=== PATIENT | female | born 1985 | race Hispanic/Latino ===

== ENCOUNTER 2021-06-05 09:36 | Outpatient (CLI) | payer OTHER | END 2021-06-05 09:37 | disposition home or self-care (01) | LOC: CTENTCT 09:36 | PROVIDERS: ATTEND Student in an Organized Health Care Education/Training Program | DX: J32.9 Chronic sinusitis, unspecified (principal) | CPT/HCPCS: 70486 ==

== ENCOUNTER 2023-09-30 08:33 | Outpatient (CLI) | payer OTHER | END 2023-09-30 08:34 | disposition home or self-care (01) | LOC: BICMRI 08:33 | PROVIDERS: ATTEND Family Medicine | DX: M54.2 Cervicalgia (principal); M62.89 Other specified disorders of muscle | CPT/HCPCS: 72156 ==

== ENCOUNTER 2023-09-30 13:34 | Inpatient (IN) | payer OTHER ==
[2023-09-30 14:39] LABS: #Monocytes 0.5 thou/uL (0.11-0.59); #Neutrophils 6.5 thou/uL (1.40-6.50); %Basophils 0.3 % (0.0-1.0); %Eosinophils 0.5 % (0.0-10.0); %Lymphocytes 19.8 % (21.0-51.0); %Monocytes 5.3 % (0.0-10.0); %Neutrophils 73.8 % (42.0-75.0); Hematocrit 40.6 % (36.0-47.0); Hemoglobin 13.7 g/dL (12.0-16.0); Mean Corpuscular HGB CONC 33.7 g/dL (32.0-36.0); Mean Corpuscular Hemoglobin 29.4 pg (27.0-31.0); Mean Corpuscular Volume 87.1 fl (78.0-98.0); Mean Platelet Volume 10.9 fL (7.4-10.4); Platelet Count 245 10x3/uL (130-400); RBC Distribution Width 11.9 % (11.5-14.5); Red Blood Cell (RBC) Count 4.66 mill/uL (4.20-5.40); White Blood Cell (WBC) Count 8.8 10x3/uL (4.8-10.8)
[2023-09-30] MEDS ORDERED: Dexamethasone 10 MG/ML VIAL ONE (15:03)
[2023-09-30] MEDS ORDERED: metroNIDAZOLE 500 MG (100 mL) BAG ONE (15:03)
[2023-09-30] MEDS ORDERED: Vancomycin 1 GM/200 ML (FROZEN) BAG ONE (15:03)
[2023-09-30 15:10] LABS: ALT (SGPT) 17 U/L (8-55); AST (SGOT) 25 U/L (5-34); Albumin 4.8 g/dL (3.5-5.0); Alkaline Phosphatase 75 U/L (40-110); Anion Gap 13 mmol/L (10-20); BUN (Urea Nitrogen) 8 mg/dL (7.0-18.7); Bilirubin, Total 0.8 mg/dL (0.2-1.2); Calc. Creatinine Clearance 0 mL/min (70-130); Calcium 10.5 mg/dL (7.8-10.44); Carbon Dioxide 27 mmol/L (22-29); Chloride 103 mmol/L (98-107); Estimated GFR 114; Globulin 3.4 g/dL (2.4-3.5); Glucose 110 mg/dL (70-105); Protein, Total 8.2 g/dL (6.0-8.3); Sodium 139 mmol/L (136-145)
[2023-09-30] MEDS ORDERED: Ondansetron PF 4 MG/2 ML Vial IVP PRN (15:30)
[2023-09-30] MEDS ORDERED: Guaifenesin DM 100-10/5 ML UDCUP PO PRN (15:30)
[2023-09-30] MEDS ORDERED: Bisacodyl 5 MG TAB PO PRN (15:30)
[2023-09-30] MEDS ORDERED: Zolpidem Tartrate 5 MG TAB PO PRN (15:30)
[2023-09-30] MEDS ORDERED: HYDROcodone/Acetaminophen 5/325 mg Tablet PO PRN (15:30)
[2023-09-30] MEDS ORDERED: Senokot S 8.6-50 MG TAB PO PRN (15:30)
[2023-09-30 15:32] LABS: BHCG - Serum Negative (NEGATIVE); Pregs Control Background? CLEAR/WHITE (CLR/WHITE); Pregs Control Bar Appear? YES (CONTROL BAR)
[2023-09-30 16:59] LABS: HIV (1/2) Antibody/Antigen Non-Reactive (NonReactive); HIV 1/2 INDEX 0.15 S/CO (<1.00)
[2023-09-30] MEDS: Sodium Chloride 0.9% 1,000 ML IV SCH (17:33)
[2023-09-30 17:48] VITALS: BMI 22.2
[2023-09-30] MEDS: metroNIDAZOLE 500 MG in Premix 1 BAG IVPB SCH (21:00)
[2023-09-30] MEDS: Famotidine 20 MG TAB PO SCH (21:00)
[2023-10-01] MEDS: Vancomycin 1 GM in Premix 1 BAG IVPB SCH (03:11)
[2023-10-01 05:00] LABS: #Monocytes 0.2 thou/uL (0.11-0.59); #Neutrophils 4.8 thou/uL (1.40-6.50); %Basophils 0.2 % (0.0-1.0); %Lymphocytes 14.1 % (21.0-51.0); %Monocytes 2.9 % (0.0-10.0); %Neutrophils 82.6 % (42.0-75.0); Hematocrit 35.7 % (36.0-47.0); Hemoglobin 11.9 g/dL (12.0-16.0); Mean Corpuscular HGB CONC 33.3 g/dL (32.0-36.0); Mean Corpuscular Hemoglobin 29.2 pg (27.0-31.0); Mean Corpuscular Volume 87.5 fl (78.0-98.0); Mean Platelet Volume 11.5 fL (7.4-10.4); Platelet Count 227 10x3/uL (130-400); RBC Distribution Width 11.7 % (11.5-14.5); Red Blood Cell (RBC) Count 4.08 mill/uL (4.20-5.40); White Blood Cell (WBC) Count 5.8 10x3/uL (4.8-10.8)
[2023-10-01 05:21] LABS: Anion Gap 11 mmol/L (10-20); BUN (Urea Nitrogen) 9 mg/dL (7.0-18.7); Calc. Creatinine Clearance 106 mL/min (70-130); Calcium 9.2 mg/dL (7.8-10.44); Carbon Dioxide 23 mmol/L (22-29); Chloride 107 mmol/L (98-107); Estimated GFR 120; Glucose 178 mg/dL (70-105); Potassium 3.5 mmol/L (3.5-5.1); Sodium 137 mmol/L (136-145)
[2023-10-01] MEDS: Acetaminophen 325 MG TAB PO PRN (10:41)
[2023-10-01] MEDS: traMADol HCl 50 MG TAB PO PRN (12:24)
[2023-10-01] MEDS: Piperacillin/Tazobactam 3.375 GM in Sodium Chloride 0.9% 100 ML IVPB SCH ×2 (19:55→23:50)
[2023-10-02 04:09] LABS: #Eosinphils 0.1 thou/uL (0.0-0.7); #Monocytes 0.5 thou/uL (0.11-0.59); #Neutrophils 4.8 thou/uL (1.40-6.50); %Basophils 0.4 % (0.0-1.0); %Eosinophils 0.8 % (0.0-10.0); %Lymphocytes 23.8 % (21.0-51.0); %Monocytes 6.9 % (0.0-10.0); %Neutrophils 67.8 % (42.0-75.0); Hematocrit 32.6 % (36.0-47.0); Hemoglobin 10.9 g/dL (12.0-16.0); Mean Corpuscular HGB CONC 33.4 g/dL (32.0-36.0); Mean Corpuscular Hemoglobin 29.2 pg (27.0-31.0); Mean Corpuscular Volume 87.4 fl (78.0-98.0); Mean Platelet Volume 11.2 fL (7.4-10.4); Platelet Count 185 10x3/uL (130-400); RBC Distribution Width 11.9 % (11.5-14.5); Red Blood Cell (RBC) Count 3.73 mill/uL (4.20-5.40); White Blood Cell (WBC) Count 7.1 10x3/uL (4.8-10.8)
[2023-10-02 04:42] LABS: Vancomycin, Trough 8.4 ug/mL
[2023-10-02 04:43] LABS: Anion Gap 8 mmol/L (10-20); BUN (Urea Nitrogen) 15 mg/dL (7.0-18.7); Calc. Creatinine Clearance 87 mL/min (70-130); Calcium 8.6 mg/dL (7.8-10.44); Carbon Dioxide 23 mmol/L (22-29); Chloride 107 mmol/L (98-107); Estimated GFR 114; Glucose 94 mg/dL (70-105); Potassium 3.3 mmol/L (3.5-5.1); Sodium 135 mmol/L (136-145)
[2023-10-02] MEDS: Vancomycin HCl 750 MG in Sodium Chloride 0.9% 250 ML 250 ML IVPB SCH (04:57)
[2023-10-02] MEDS: Potassium Chloride 20 MEQ TAB PO SCH (08:52)
[2023-10-02 11:01] LABS: Bacteria/HPF None Seen HPF (None Seen); Bilirubin Negative (Negative); Blood, Urine Negative (Negative); CAUTI Indications for Culture Dysuria,urgency,freq; Clarity Clear (Clear); Glucose, Urine (Dipstick) Normal (Negative); Ketone, Urine Negative (Negative); Leukocyte Negative Leu/uL (Negative); Nitrite Negative (Negative); Protein, Urine (Dipstick) Negative (Neg-Trace); RBC/HPF 0-3 HPF (0-3); Specific Gravity, Urine 1.006 (1.002-1.036); Squamous Epithelial 0-3 HPF (0-3); Urobilinogen Normal mg/dL (Less than 2); WBC/HPF None Seen HPF (0-3); pH, Urine 5.5 (5.0-9.0)
[2023-10-02 11:13] LABS: Urine Culture Reflex No No
[2023-10-03] MEDS: Ibuprofen 100 MG/5 ML UDCUP PO PRN (05:15)
[2023-10-03 05:50] LABS: #Basophils 0.1 thou/uL (0.0-0.2); #Eosinphils 0.1 thou/uL (0.0-0.7); #Monocytes 0.6 thou/uL (0.11-0.59); #Neutrophils 5.2 thou/uL (1.40-6.50); %Basophils 0.7 % (0.0-1.0); %Eosinophils 1.4 % (0.0-10.0); %Monocytes 6.7 % (0.0-10.0); Hematocrit 37.5 % (36.0-47.0); Hemoglobin 12.4 g/dL (12.0-16.0); Mean Corpuscular HGB CONC 33.1 g/dL (32.0-36.0); Mean Corpuscular Hemoglobin 29.2 pg (27.0-31.0); Mean Corpuscular Volume 88.2 fl (78.0-98.0); Mean Platelet Volume 11.2 fL (7.4-10.4); Platelet Count 213 10x3/uL (130-400); Red Blood Cell (RBC) Count 4.25 mill/uL (4.20-5.40); White Blood Cell (WBC) Count 8.8 10x3/uL (4.8-10.8)
[2023-10-03 06:18] LABS: Anion Gap 17 mmol/L (10-20); BUN (Urea Nitrogen) 9 mg/dL (7.0-18.7); CRP (Inflammatory) Less than 0.50 mg/dL (= or < 0.5); Calc. Creatinine Clearance 89 mL/min (70-130); Calcium 9.8 mg/dL (7.8-10.44); Carbon Dioxide 22 mmol/L (22-29); Chloride 103 mmol/L (98-107); Estimated GFR 115; Glucose 96 mg/dL (70-105); Potassium 3.9 mmol/L (3.5-5.1); Sodium 138 mmol/L (136-145)
[2023-10-03] MEDS ORDERED: Cyclobenzaprine 10 MG TAB PO PRN (08:37)
[2023-10-03] MEDS: Cyclobenzaprine 10 MG TAB PO SCH (09:48)
[2023-10-03] MEDS: Fioricet 325/50/40 mg Tablet PO PRN (14:13)
[2023-10-04 12:18] LABS: ANA Symphony (Qualitative) Negative (Negative); ANA Symphony (Quantitative) 0.1 Ratio (< 0.7 Negative); dsDNA IgG Antibody 1.1 IU/mL (<10 Negative)
[2023-10-04] MEDS: CEFAZOLIN 2 GM in Sodium Chloride 0.9% 100 ML IVPB SCH (14:03)
[2023-10-05 04:50] LABS: Prothrombin Time 12.8 sec (12.0-14.7)
[2023-10-06 04:48] VITALS: BP 108/73; TEMP 98.4
[2023-10-06] MEDS ORDERED: Lidocaine 1% PF 5 ML VIAL ONE (07:00)
[2023-10-06] MEDS ORDERED: Sodium Bicarbonate 2.5 MEQ/5 ML SDV ONE (07:00)
== END 2023-10-06 15:02 | disposition home or self-care (01) | DRG 540 ==
LOC: ERS 13:34 → T4-A 15:22
PROVIDERS: ADMIT Emergency Medicine; ATTEND Family Medicine
PROC: 02HV33Z Insertion of Infusion Device into Superior Vena Cava, Percutaneous Approach (ICD-10-PCS; principal; 2023-10-06)
PROC: B5181ZA Fluoroscopy of Superior Vena Cava using Low Osmolar Contrast, Guidance (ICD-10-PCS; 2023-10-06)
PROC: B548ZZA Ultrasonography of Superior Vena Cava, Guidance (ICD-10-PCS; 2023-10-06)
DX: M46.21 Osteomyelitis of vertebra, occipito-atlanto-axial region (principal); L02.11 Cutaneous abscess of neck; M60.08 Infective myositis, other site; M46 Other inflammatory spondylopathies; K21.9 Gastro-esophageal reflux disease without esophagitis; R22.1 Localized swelling, mass and lump, neck; Z79.899 Other long term (current) drug therapy
CPT/HCPCS: 36415; 36416; 36569; 71046; 72125; 72126; 72156; 80048; 80053; 80202; 81001; 83605; 84703; 85025; 85610; 86038; 86140; 86225; 87040; 87077; 87149; 87186; 87389; 93306; 96374; 96375; C1751; J1100; J2543; J3370; J3370-JW; J3490; J7050